=== PATIENT | male | born 1960 | race Caucasian/White ===

== ENCOUNTER 2017-07-26 09:56 | Emergency (ER) | payer OTHER ==
[~2017-07-26 09:56] MED LIST: ALB18R INH; BENZ200C15 PO; GLIP-152 PO; GLIP-154 PO; METF-411 PO; VALS1TAB63 PO
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
[2017-07-26] MEDS ORDERED: IOPAMIDOL 76% 75 ML INFUS BTL 75 ML ONE (10:13)
[2017-07-26] MEDS ORDERED: DEXAMETHASONE SOD PHOS 10MG/ML IVP ONE (10:50)
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
[2017-07-26 15:30] VITALS: BP 165/91
[2017-07-26] MEDS ORDERED: PRED20TA6 PO (15:45)
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
== END 2017-07-26 15:47 | disposition home or self-care (01) ==
LOC: ER 10:00
DX: S12.8XXA Fracture of other parts of neck, initial encounter (principal); W22.8XXA Striking against or struck by other objects, initial encounter
CPT/HCPCS: 70491; 96374; 99284; J1100; Q9967; 82310; 82374; 82435; 82565; 82947; 84132; 84295; 84520

== ENCOUNTER → 2018-04-12 | Outpatient (CLI) | payer OTHER ==
[~2018-04-12] MED LIST changes: +LOSA-51 PO; -METF-411 PO; +METF-450 PO; +PRED20TA6 PO
== END ==
LOC: LAB 15:20
PROVIDERS: ATTEND Internal Medicine
DX: R10.11 Right upper quadrant pain (principal)
CPT/HCPCS: 36415; 82040; 82247; 82310; 82374; 82435; 82565; 82947; 84075; 84132; 84155; 84295; 84450; 84460; 84520

== ENCOUNTER → 2018-04-17 | Outpatient (CLI) | payer OTHER ==
--- NOTE | 2018-04-17 09:19 | RADIOLOGY IMAGING REPORT ---
FACILITY: [facility] - [place] PATIENT NAME: Tang Chew : 1960 MR: [id number] V: [id number] EXAM DATE: ORDERING PHYSICIAN: ROMEO DOAN TECHNOLOGIST: Location: [facility] Patient: Tang Chew : 1960 Visit/Account:[id number] Date of Sevice: 04/17/2018 GALLBLADDER EXAMINATION: Limited right upper quadrant ultrasound Additional Pertinent history: none COMPARISON STUDIES: None. FINDINGS: Liver: Homogeneous echotexture seen without evidence of mass. Gallbladder: Normal wall thickness, no evidence of gallstone. Common duct: normal 4.7 mm. Pancreas: Visualized portions are normal. Right kidney: Normal. No hydronephrosis or mass. Proximal IVC/Aorta: negative IMPRESSION: Normal right upper quadrant ultrasound. Report Dictated By: Benigno Heart at 04/17/2018 9:11 AM Report E-Signed By: Benigno Haert at 04/17/2018 9:14 AM WSN:[email or web address]
== END ==
LOC: US 01:35
PROVIDERS: ATTEND Internal Medicine
DX: R10.11 Right upper quadrant pain (principal)
CPT/HCPCS: 76705

== ENCOUNTER → 2018-04-18 | Outpatient (CLI) | payer OTHER | LOC: LAB 13:41 | PROVIDERS: ATTEND Internal Medicine | DX: R10.11 Right upper quadrant pain (principal) | CPT/HCPCS: 36415; 82040; 82247; 82310; 82374; 82435; 82565; 82947; 84075; 84132; 84155; 84295; 84450; 84460; 84520 ==

== ENCOUNTER → 2018-04-21 | Outpatient (CLI) | payer OTHER ==
[2018-04-21 17:47] LABS: PLATELET COUNT, AUTOMATED 202 K/uL (150-450)
== END ==
LOC: LAB 17:12
PROVIDERS: ATTEND Internal Medicine
DX: R10.11 Right upper quadrant pain (principal); R94.5 Abnormal results of liver function studies
CPT/HCPCS: 36415; 82728; 83540; 83550; 85025; 86706; 86803; 87340